=== PATIENT | male | born 1970 | race Caucasian/White ===

== ENCOUNTER → 2020-05-28 10:59 | Outpatient (CLI) | payer OTHER, SELFPAY ==
--- NOTE | ~2020-05-28 | MR_ITS ---
EXAMINATION: MR shoulder LT wo con DATE: 05/28/2020 11:41 INDICATION: Acute left shoulder pain. TECHNIQUE: Magnetic resonance imaging (MRI) of the left shoulder was performed without intravenous co ntrast. Sequences included axial PD-weighted FS FSE, coronal oblique PD-weighted FS FSE and T2-weight ed FS FSE, and sagittal oblique T2-weighted FS FSE and T1-weighted FSE. COMPARISON: None. FINDINGS: Coracoacromial arch: The acromion undersurface is curved in morphology (type II). There is moderate acromioclavicular join t osteoarthritis. There is mild subacromial/subdeltoid bursitis. Rotator cuff: There is severe supraspinatus tendinopathy and mild infraspinatus tendinopathy. Teres minor tendon is abnormal. There is mild subscapularis tendinopathy. No tear. There is no asymmetric fatty atrophy of the rotator cuff muscle bellies. Biceps tendon and glenoid labrum: Biceps tendon is in bicipital groove. Intra-articular biceps tendon is normal. The glenoid labrum is normal. Fluid: There is no glenohumeral joint effusion. Bones/cartilage: The glenoid cartilage is normal. Humeral cartilage is normal. IMPRESSION: 1. Severe rotator cuff tendinopathy. No tear. 2. Moderate acromioclavicular joint osteoarthritis. 3. Mild subacromial/subdeltoid bursitis. Reviewed, dictated and finalized at location A. UNDERWRITER
== END ==
PROVIDERS: PCP Internal Medicine; Visit Provider Internal Medicine
DX: M19.012 Primary osteoarthritis, left shoulder (principal); M75.52 Bursitis of left shoulder
CPT/HCPCS: 73221

== ENCOUNTER 2022-02-15 02:18 | Observation (INO) | payer BC, SELFPAY ==
[2022-02-15] VITALS (20 sets, daily range): BP systolic 140–172; BP diastolic 86–98; PULSE 71–96; RESP 13–24; TEMP 36.4–36.7; O2SAT 94–99; BMI 34.4
--- NOTE | 2022-02-15 | EST_ITS ---
Patient Info Name: Godfrey Sanches Age: 51 years : 1970 Gender: Male Ht: 72 in Wt: 235 lbs BSA: 2.36 m2 HR: 78 bpm BP: 140 / 65 mmHg Heart Rhythm: Sinus Rhythm Exam Date: 02/15/2022 9:24 AM Exam Location: [facility] Patient Status: Outpatient Admit Date: 02/15/2022 Staff Ordering Physician: Ashley Aguilera DO Attending Provider: Ashley Aguilera DO Exercise Technologist: Radha Song CT Exercise Physician: Mark Frankel DO Exam Type: CA stress test treadmill w NM Study Info Indications I51.7 - Cardiomegaly R07.9 - Chest pain, unspecified A nuclear stress test was performed. Summary 1. 1. Negative Ruben exercise stress test for ischemic ST changes by ECG criteria. 2. 2. Good functional capacity, achieving 10 METs of workload. 3. 3. Baseline hypertension. 4. 4. Appropriate HR response to exercise. 5. 5. Appropriate HR recovery at 1 minute post exercise. 6. 6. Nuclear scan to follow and will be reported separately. Please correlate with it. 7. 7. Patient informed of the above results. Protocol: [facility] Stress ECG Details Stage: REST Duration (min): 1 min : 9 sec Speed (mph): 0.0 Grade (%): 0 HR (bpm): 78 SBP (mmHg): 140 DBP (mmHg): 65 METS: --- Stage: REST Duration (min): 32 min : 31 sec Speed (mph): 0.0 Grade (%): 0 HR (bpm): 78 SBP (mmHg): 140 DBP (mmHg): 65 METS: --- Stage: STAGE 1 Duration (min): 1 min : 0 sec Speed (mph): 1.7 Grade (%): 10 HR (bpm): 99 SBP (mmHg): 140 DBP (mmHg): 65 METS: --- Stage: STAGE 1 Duration (min): 2 min : 0 sec Speed (mph): 1.7 Grade (%): 10 HR (bpm): 106 SBP (mmHg): 140 DBP (mmHg): 65 METS: --- Stage: STAGE 1 Duration (min): 3 min : 0 sec Speed (mph): 1.7 Grade (%): 10 HR (bpm): 107 SBP (mmHg): 148 DBP (mmHg): 84 METS: --- Stage: STAGE 2 Duration (min): 1 min : 0 sec Speed (mph): 2.5 Grade (%): 12 HR (bpm): 113 SBP (mmHg): 148 DBP (mmHg): 84 METS: --- Stage: STAGE 2 Duration (min): 2 min : 0 sec Speed (mph): 2.5 Grade (%): 12 HR (bpm): 119 SBP (mmHg): 179 DBP (mmHg): 79 METS: --- Stage: STAGE 2 Duration (min): 3 min : 0 sec Speed (mph): 2.5 Grade (%): 12 HR (bpm): 119 SBP (mmHg): 179 DBP (mmHg): 79 METS: --- Stage: STAGE 3 Duration (min): 1 min : 0 sec Speed (mph): 3.4 Grade (%): 14 HR (bpm): 136 SBP (mmHg): 179 DBP (mmHg): 79 METS: --- Stage: STAGE 3 Duration (min): 2 min : 0 sec Speed (mph): 3.4 Grade (%): 14 HR (bpm): 142 SBP (mmHg): 175 DBP (mmHg): 92 METS: --- Stage: STAGE 3 Duration (min): 2 min : 55 sec Speed (mph): 3.4 Grade (%): 14 HR (bpm): 145 SBP (mmHg): 200 DBP (mmHg): 88 METS: --- Stage: RECOVERY Duration (min): 0 min : 4 sec Speed (mph): 1.5 Grade (%): 0
--- NOTE | ~2022-02-15 | CT_ITS ---
EXAMINATION: CTA chest PE protocol DATE: 02/15/2022 03:12 INDICATION: Chest pain. Shortness of breath. TECHNIQUE: Computed tomography angiography (CTA) of the chest was performed with 100 mL Omnipaque-350 intravenous contrast timed to evaluate the pulmonary arteries. Coronal maximum intensity projection 3D-reconstructions were created by the technologist. Automated exposure control and iterative reconst ruction technique were employed. The dose-length product was 626.90 mGy-cm. COMPARISON: Thoracic spine CT 08/03/2016 FINDINGS: The lungs demonstrate mild atelectasis. The lung volumes are small. A calcified right lung nodule is consistent with old granulomatous disease. No pleural effusion. The heart size is normal. N o pericardial effusion. There is no pulmonary embolus. There is a 15 mm cyst in the liver. There is m ild thoracic spondylosis. There is mild chronic anterior wedging of T11 vertebral body. IMPRESSION: 1. No pulmonary embolus. Reviewed, dictated and finalized at location A. IMPRESSION: 1. No pulmonary embolus.
--- NOTE | ~2022-02-15 | NM_ITS ---
EXAMINATION: NM stress w perf spect multi DATE: 02/15/2022 10:49 INDICATION: Chest pain. TECHNIQUE: Rest images were obtained following intravenous administration of 10.8 mCi Tc99m tetrofosm in (Myoview). The patient performed an exercise activity. At peak exercise, 33.5 mCi Tc99m tetrofosmi n (Myoview) was administered intravenously, and stress images were obtained. Data was reconstructed i nto short axis and horizontal and vertical long axis SPECT images. Gated SPECT images were also obtai josefa. COMPARISON: Chest CT 02/15/2022 FINDINGS: There is no definite reversible or fixed perfusion abnormality to suggest ischemia or infar ction. There is no segmental wall motion abnormality. Left ventricular ejection fraction measures > 70%. IMPRESSION: 1. No definite ischemia or infarct. 2. Normal left ventricular ejection fraction measuring >70%. Reviewed, dictated and finalized at location A.
--- NOTE | 2022-02-15 02:22 | ECG_ITS ---
Measurements Intervals [place] Rate: 90 P: 28 [place]: 144 QRS: -11 QRSD: 93 T: 12 QT: 374 QTc: 459 Interpretive Statements SINUS RHYTHM DELAYED PRECORDIAL R/S TRANSITION BASELINE ARTIFACT- I, II, III, AVF, V4-V6 BORDERLINE ECG NO PREVIOUS ECG AVAILABLE FOR COMPARISON Electronically Signed On 02-15-2022 6:29:52 CDT by Mark Frankel D.O.
[2022-02-15 02:29] LABS: Basophils Absolute Auto 0.1 K/mm3 (0.0-0.1); Basophils Percent Auto 0.6 % (0.2-1.2); Eosinophils Absolute Auto 0.5 K/mm3 (0-0.3); Eosinophils Percent Auto 4.4 % (0-4.4); Hematocrit 50.9 % (42.0-52.0); Hemoglobin 16.8 g/dL (14.0-18.0); Immature Granulocyte Absolute 0.08 K/mm3 (0.00-0.031); Immature Granulocyte Percent A 0.7 % (0-0.5); Lymphocytes Absolute Auto 4.69 K/mm3 (0.9-3.2); Lymphocytes Percent Auto 39.1 % (18.3-44.2); Mean Corpuscular Hemoglobin 28.5 pg (26-34); Mean Corpuscular Volume 86.3 fl (80-100); Mean Platelet Volume 10.2 fl (7.4-10.4); Monocytes Absolute Auto 1.1 K/mm3 (0.1-0.6); Monocytes Percent Auto 8.8 % (2.6-8.5); Neutrophils Absolute Auto 5.6 K/mm3 (1.3-6.7); Neutrophils Percent Auto 46.4 % (45.5-73.1); Platelet Count Result 258 k/mm3 (150-375); Red Cell Distribution Width 14.4 % (11.5-14.5)
[2022-02-15 02:39] LABS: Prothrombin Time 12.6 Seconds (11.1-14.7)
[2022-02-15 02:40] LABS: Partial Thromboplastin Time 30.8 SECONDS (22.3-36.8)
[2022-02-15] MEDS: ASPIRIN 81 MG CHEWABLE TABLET 324 MG PO (02:40)
[2022-02-15 02:41] LABS: Alanine Aminotransferase 28 U/L (6-50); Albumin Level 4.2 g/dL (3.5-5.1); Alkaline Phosphatase 122 U/L (38-126); Anion Gap 7 mmol/L (8-16); Aspartate Amino Transferase 25 U/L (17-59); Bilirubin,Total 0.9 mg/dL (0.2-1.3); Blood Urea Nitrogen 18 mg/dL (9-20); Calcium 9.2 mg/dL (8.4-10.2); Carbon Dioxide 29 mmol/L (22-30); Chloride 103 mmol/L (98-107); Estimated CRCL calculation 95 ml/min; Estimated Glomerular Filt Rate > 60; Glucose 102 mg/dL (65-110); Lipase 63 U/L (23-300); Potassium 3.5 mmol/L (3.4-5.0); Sodium 139 mmol/L (137-145)
[2022-02-15] MEDS: NITROGLYCERIN SL 0.4 MG TABLET SUBLINGUAL (02:41)
[2022-02-15 02:53] LABS: Troponin I 0.033 ng/mL (0.000-0.034)
--- NOTE | 2022-02-15 04:12 | ED.CHESTPAIN ---
HPI - Chest Pain General Chief Complaint: Chest Pain Stated Complaint: chest pain Time Seen by Provider: 02/15/22 02:22 History of Present Illness HPI narrative: Patient is a 51-year-old male who presents ER with upper chest pain. Reports began yesterday during the day and been persistent ache. He went to bed 1 AM and then woke up at 130. He has a sharp pain in his upper chest that is worse with taking a breath. Reports he feels like he can only get a quarter of his breath at a time. No radiation. No alleviating factors. No dyspepsia. No upset stomach. No nausea or vomiting. Has not had similar symptoms previously. Related Data Allergies Allergy/AdvReac Type Severity Reaction Status Date / Time No Known Allergies Allergy Mild Verified 02/16/22 09:13 Review of Systems Review of Systems: All systems reviewed & are unremarkable except as noted in HPI and below Constitutional: Constitutional: Denies chills, Denies fatigue and Denies fever(s) ENT: Denies nasal congestion and Denies sore throat Cardiovascular: Cardiovascular: Reports chest pain, Denies rapid heart rate and Denies radiating jaw, neck or arm pain Respiratory: Respiratory: Denies cough and Reports dyspnea Gastrointestinal: Gastrointestinal: Denies abdominal pain, Denies nausea and Denies vomiting PMFSH Past Medical History Medical History (Updated 02/18/22 @ 03:52 by Yousuf Donnelly MD) GERD (gastroesophageal reflux disease) Gastric ulcer at age 25 Non-cardiac chest pain Surgical History Surgical History No pertinent past surgical history Family History Family History Other Heart attack Social History Social History Smoking status: Never smoker Substance use type: does not use Other substance usage details: social drinker Spiritual care concerns: No Exam Narrative: GENERAL: Uncomfortable-appearing, well-nourished, and in no acute distress. HEAD: Normocephalic, atraumatic. ENT: Mucous membranes moist. CHEST: Clear to auscultation. No respiratory distress. HEART: Regular rate and rhythm. Normal peripheral pulses. ABDOMEN: Soft, nontender, nondistended. EXTREMITIES: Normal range of motion. No edema. SKIN: Warm, dry, no rash. NEURO: Alert and oriented x3. PSYCH: Normal mood and affect. Course Course Emergency Course: Chest pain went from 810-310 after nitroglycerin. Blood pressure went from 170 systolic to 120 systolic. We will will rule out PE with CTA given pain with deep breath. Reevaluation(s) Reevaluation #1: Patient without pain. When he did go to CT he reports a little discomfort with laying down flat now has been belching. CT shows cardiomegaly which is new for him and curious given the fact that he has no comorbid conditions. Given the chest pain that improved with nitroglycerin and cardiomegaly will discuss with hospitalist service about observation and cardiac rule out. Date: 02/15/22 Time: 05:40 Vital Signs Vital signs: Vital Signs Pulse Rate 89 02/15/22 02:24 Respiratory Rate 24 H 02/15/22 02:24 Blood Pressure 172/98 H 02/15/22 02:24 Pulse Oximetry 96 02/15/22 02:24 Oxygen Delivery Room Air 02/15/22 02:24 Temperature 97.2 F L 02/16/22 09:14 Pulse Rate 75 02/16/22 10:25 Respiratory Rate 20 02/16/22 10:25 Blood Pressure 133/96 H 02/16/22 10:25 Pulse Oximetry 95 02/16/22 10:25 Oxygen Delivery Room Air 02/16/22 10:25 MDM - Chest Pain Lab Data Result diagrams: 02/15/22 02:25 02/15/22 02:25 Labs: Lab Results 02/15/22 02/15/22 02/15/22 Range/Units 02:25 02:25 02:25 WBC 12.0 H (4.5-10.0) K/mm3 RBC 5.90 (4.6-6.20) M/mm3 Hgb 16.8 (14.0-18.0) g/dL Hct 50.9 (42.0-52.0) % MCV 86.3 (80-100) fl MCH 28.5 (26-34) pg MCHC 33.0 (32-36)
--- NOTE | 2022-02-15 06:00 | ECHO_ITS ---
Patient Info Name: Godfrey Sanches Age: 51 years : 1970 Gender: Male Ht: 72 in Wt: 230 lbs BSA: 2.33 m2 HR: 96 bpm BP: 145 / 87 mmHg Heart Rhythm: Sinus Rhythm Technical Quality: Fair Exam Date: 02/15/2022 11:59 AM Exam Location: [facility] Patient Status: Inpatient Admit Date: 02/15/2022 Staff Ordering Physician: Yousuf Donnelly MD Cross Cut Saw Operator: Manda Walker RDCS Attending Provider: Ashley Aguilera DO Referring Physician: Andrzej ROSARIO; Exam Type: CA echo doppler color flow Study Info Indications - cardiomegaly Complete two-dimensional, color flow and Doppler transthoracic echocardiogram is performed. Summary 1. Complete two-dimensional, color flow and Doppler transthoracic echocardiogram is performed. 2. Left ventricular chamber dimension is normal. 3. Left ventricular systolic function is normal, estimated at 60-65%. 4. The left ventricular diastolic function is grade I diastolic dysfunction. 5. E/e' 8 is minimally elevated. 6. Left atrial chamber dimension is mildly enlarged. 7. No pulmonary hypertension, estimated pulmonary arterial systolic pressure is 16 mmHg. Left Ventricle E/e' 8 is minimally elevated. Left ventricular chamber dimension is normal. Left ventricular systolic function is normal, estimated at 60-65%. The left ventricular diastolic function is grade I diastolic dysfunction. Right Ventricle Right ventricular systolic function is normal and with normal TAPSE 1.9 cm. Right ventricular chamber dimension is normal. Left Atria Left atrial chamber dimension is mildly enlarged. Right Atria Right atrial chamber dimension is normal. Aortic Valve The aortic valve is trileaflet. There is no aortic valve stenosis. There is no aortic valve regurgitation. Pulmonic Valve There is no pulmonic regurgitation. Mitral Valve There is no mitral valve stenosis. There is no mitral valve regurgitation. Tricuspid Valve There is no tricuspid valve regurgitation. No pulmonary hypertension, estimated pulmonary arterial systolic pressure is 16 mmHg. Pericardium/Pleural There is no pericardial effusion. Inferior Vena Cava Normal inferior vena cava with >50% collapse upon inspiration consistent with normal right atrial pressure, 5 mmHg. Aorta The aortic root size at the sinus of Valsalva is normal. Left Ventricular Outflow Tract Name Value Normal LVOT 2D LVOT Diameter 2.2 cm LVOT Doppler LVOT Peak Gradient 5 mmHg LVOT Mean Gradient 2 mmHg LVOT VTI 21 cm LVOT VTI/AV VTI Ratio 0.8 LVOT Stroke Volume 82 ml LVOT CO 5.8 l/min LVOT CI 2.5 l/min/m2 Pulmonic Valve Name Value Normal RVOT Doppler
[2022-02-15 06:10] LABS: Troponin I 0.033 ng/mL (0.000-0.034)
--- NOTE | 2022-02-15 07:50 | ADMGEN ---
This patient, Godfrey Sanches, was admitted to IMU Room 214-01 at 0735 on 02/15/2022. Patient/family oriented to hospital policies and general routines including ID bracelet, bed and alarms, visiting hours, pain management, procedures, bathroom and other care routines, personal items, smoking policy, room service/diet, and visiting hours. Information on how to activate the Rapid Response Team has been discussed. Patient/Family are encouraged to report perceived risks to care and to ask questions if they do not understand what they are told or what they should do.
--- NOTE | 2022-02-15 08:46 | PM.IMHP ---
H&P: HPI History of Present Illness Date/Time: 02/15/22 08:46 Chief Complaint: chest pain Narrative: 51 year old man with PMH significant for GERD and a ulcer p/w chest pain. It was worse when taking a deep breath. He denied SOB, NVD, F/C. PMFSH Past Medical History Medical History (Updated 02/15/22 @ 04:16 by Yousuf Donnelly MD) GERD (gastroesophageal reflux disease) Gastric ulcer at age 25 Surgical History Surgical History (Updated 02/15/22 @ 04:15 by Yousuf Donnelly MD) No pertinent past surgical history Family History Family History (Updated 02/15/22 @ 08:08 by Margaux Singh RN) Other Heart attack Social History Social History (Updated 02/15/22 @ 04:16 by Yousuf Donnelly MD) Smoking status: Never smoker Substance use type: does not use Other substance usage details: social drinker Spiritual care concerns: No Meds Home Medications and Allergies Home Medications Medication Instructions Recorded Confirmed Type No Home Medications 02/15/22 02/15/22 History Allergies Allergy/AdvReac Type Severity Reaction Status Date / Time No Known Allergies Allergy Mild Verified 08/03/16 16:09 Vital Signs Vital Signs - 24 hr 02/15/22 02:24 02/15/22 02:43 02/15/22 02:26 Temperature Pulse Rate 89 88 89 Respiratory Rate 24 H 23 H Blood Pressure 172/98 H Pulse Oximetry 96 Oxygen Delivery Room Air 02/15/22 02:30 02/15/22 02:43 02/15/22 02:45 Temperature Pulse Rate 91 86 90 Respiratory Rate 16 21 H 16 Blood Pressure 140/86 Pulse Oximetry 95 94 Oxygen Delivery 02/15/22 03:10 02/15/22 03:15 02/15/22 03:46 Temperature Pulse Rate 81 79 77 Respiratory Rate 23 H 22 H 20 Blood Pressure Pulse Oximetry 96 95 94 Oxygen Delivery 02/15/22 04:00 02/15/22 04:15 02/15/22 04:30 Temperature Pulse Rate 75 71 79 Respiratory Rate 20 17 13 Blood Pressure Pulse Oximetry 96 95 Oxygen Delivery 02/15/22 07:23 02/15/22 07:51 Temperature 97.5 F L Pulse Rate 96 73 Respiratory Rate 18 22 H Blood Pressure 145/87 H 147/92 H Pulse Oximetry 99 98 Oxygen Delivery H&P: Results Labs Labs: Short CBC 02/15/22 Range/Units 02:25 WBC 12.0 H (4.5-10.0) K/mm3 Hgb 16.8 (14.0-18.0) g/dL Hct 50.9 (42.0-52.0) % Plt Count 258 (150-375) k/mm3 BMP 02/15/22 02:25 Sodium 139 Potassium 3.5 Chloride 103 Carbon Dioxide 29 BUN 18 Creatinine 1.00 Glucose 102 Calcium 9.2 Cardiac Enzymes 02/15/22 02/15/22 Range/Units 02:25 05:40 Troponin I 0.033 0.033 (0.000-0.034) ng/mL Liver Function 02/15/22 Range/Units 02:25 Total Bilirubin 0.9 (0.2-1.3) mg/dL AST 25 (17-59) U/L ALT 28 (6-50) U/L Alkaline Phosphatase 122 (38-126) U/L Albumin 4.2 (3.5-5.1) g/dL
[2022-02-15 09:06] LABS: Troponin I 0.024 ng/mL (0.000-0.034)
[2022-02-15] MEDS: HYDROcodone/acetaminophen (*CRX) 5-325 MG TABLET 1 TAB PO (12:35)
--- NOTE | 2022-02-15 15:02 | PM.SD2 ---
Same Day Admit/Disch: HPI History of Present Illness Chief complaint: Chest Pain/Cardiomegaly Narrative: Godfrey Sanches is a 51 year old male [facility] Past Medical History Medical History (Updated 02/15/22 @ 04:16 by Yousuf Donnelly MD) GERD (gastroesophageal reflux disease) Gastric ulcer at age 25 Surgical History Surgical History (Updated 02/15/22 @ 04:15 by Yousuf Donnelly MD) No pertinent past surgical history Family History Family History (Updated 02/15/22 @ 08:08 by Margaux Singh RN) Other Heart attack Social History Social History (Updated 02/15/22 @ 04:16 by Yousuf Donnelly MD) Smoking status: Never smoker Substance use type: does not use Other substance usage details: social drinker Spiritual care concerns: No Same Day Admit/Disch: Med Pre-admit Medications Home Medications Medication Instructions Recorded Confirmed Type No Home Medications 02/15/22 02/15/22 History DS: Data Data Completed and Pending Labs on day of discharge: Labs from last 24 hours 02/15/22 02/15/22 02/15/22 08:26 05:40 02:25 WBC RBC Hgb Hct MCV MCH MCHC RDW Plt Count MPV Immature Gran % (Auto) Neut % (Auto) Lymph % (Auto) Hayes % (Auto) Eos % (Auto) Baso % (Auto) Lymph # (Auto) Hayes # (Auto) Eos # (Auto) Baso # (Auto) Abs Immat Gran (auto) Absolute Neuts (auto) Absolute Nucleated RBC Nucleated RBC % PT INR APTT Sodium 139 Potassium 3.5 Chloride 103 Carbon Dioxide 29 Anion Gap 7 L BUN 18 Creatinine 1.00 Estim Creat Clear Calc 95 Estimated GFR > 60 Glucose 102 Calcium 9.2 Total Bilirubin 0.9 AST 25 ALT 28 Alkaline Phosphatase 122 Troponin I 0.024 D 0.033 0.033 Total Protein 7.0 Albumin 4.2 Lipase 63 02/15/22 02/15/22 02:25 02:25 WBC 12.0 H RBC 5.90 Hgb 16.8 Hct 50.9 MCV 86.3 MCH 28.5 MCHC 33.0 RDW 14.4 Plt Count 258 MPV 10.2 Immature Gran % (Auto) 0.7 H Neut % (Auto) 46.4 Lymph % (Auto) 39.1 Hayes % (Auto) 8.8 H Eos % (Auto) 4.4 Baso % (Auto) 0.6 Lymph # (Auto) 4.69 H Hayes # (Auto) 1.1 H Eos # (Auto) 0.5 H Baso # (Auto) 0.1 Abs Immat Gran (auto) 0.08 H Absolute Neuts (auto) 5.6 Absolute Nucleated RBC 0.0 Nucleated RBC % 0.0 PT 12.6 INR 1.0 APTT 30.8 Sodium Potassium Chloride Carbon Dioxide Anion Gap BUN Creatinine Estim Creat Clear Calc Estimated GFR Glucose Calcium Total Bilirubin AST ALT Alkaline Phosphatase Troponin I Total Protein Albumin Lipase DS: Summary Time Spent with Patient Time attestation: Total time spent providing and/or coordinating discharge services: Discharge Plan Discharge Attending physician on discharge: Sangtia Quezada Discharging Clinician: Sangita Quezada Patient Disposition: Home, Self-Care Activity: as tolerated Diet: as tolerated Patient Instructions: Antibiotic Form Stand Alone Forms: General Discharge Information Follow-up/Referrals: Noah,Ramsey Redman MD [Primary Care Provider] - Discharge Medications: No Action No Home Medications Date of admission: 02/15/22 06:44 Primary Care Provider: NoahRamsey Admitting Provider: Ashley Aguilera Attending physician on admission: Ashley Aguilera Condition: Stable
--- NOTE | 2022-02-15 15:30 | PM.IMHP ---
H&P: [facility] History of Present Illness Date/Time: 02/15/22 15:30 Chief Complaint: Chest pain with shortness of breath Narrative: 31-year-old male with no past medical history other than ulcer when he was age 25. He states he took a PPI for about a month after this and was supposed to get a repeat EGD, he never followed up. He states he often has severe heartburn, especially after drinking alcoholic beverages, but he just takes Tums or [id number] antacids. He states this episode felt different to him because he did not have a sour taste in his mouth. Other than that, however, he states it felt quite similarly. He denies any fevers or chills, no sick contacts. No headaches or vision changes. He states that the pain was intermittent, worse when he was lying down. He states it feels like there was something ?sloshing around? in his upper chest area. He states food did not seem to make it better or worse. Drinking lemonade or alcohol made it much worse. He denied any dyspnea with exertion. No conversational dyspnea. When he presented to the ER, he did have some shortness of breath, but he states this was secondary to the pain that occurred when he tried to take deep breaths or lay down. His shortness of breath is now resolved. He was seen by our [employer] pl[employer] an ER doctor and an echo as well as a stress test were both ordered. The results are available to me now and they are both essentially benign. Therefore, GI will be consulted and patient will likely need an EGD. Review of Systems Review of Systems: 12 point review of systems was assessed and was negative except as noted in the HPI [facility] Past Medical History Medical History (Updated 02/15/22 @ 15:33 by Sangita Quezada DO) GERD (gastroesophageal reflux disease) Gastric ulcer at age 25 Surgical History Surgical History No pertinent past surgical history Family History Family History Other Heart attack Social History Social History Smoking status: Never smoker Substance use type: does not use Other substance usage details: social drinker Spiritual care concerns: No Meds Home Medications and Allergies Home Medications Medication Instructions Recorded Confirmed Type No Home Medications 02/15/22 02/15/22 History Allergies Allergy/AdvReac Type Severity Reaction Status Date / Time No Known Allergies Allergy Mild Verified 08/03/16 16:09 Vital Signs Vital Signs - 24 hr 02/15/22 02:24 02/15/22 02:43 02/15/22 02:26 Temperature Pulse Rate 89 88 89 Respiratory Rate 24 H 23 H Blood Pressure 172/98 H Pulse Oximetry 96 Oxygen Delivery Room Air 02/15/22 02:30 02/15/22 02:43 02/15/22 02:45 Temperature Pulse Rate 91 86 90 Respiratory Rate 16 21 H 16 Blood Pressure 140/86 Pulse Oximetry 95 94 Oxygen Delivery 02/15/22 03:10 02/15/22 03:15 02/15/22 03:46 Temperature Pulse Rate 81 79 77 Respiratory Rate 23 H 22 H 20 Blood Pressure Pulse Oximetry 96 95 94 Oxygen Delivery 02/15/22 04:00 02/15/22 04:15 02/15/22 04:30 Temperature Pulse Rate 75 71 79 Respiratory Rate 20 17 13 Blood Pressure Pulse Oximetry 96 95 Oxygen Delivery 02/15/22 07:23 02/15/22 07:51 02/15/22 08:00 Temperature 97.5 F L Pulse Rate 96 73 75 Respiratory Rate 18 22 H Blood Pressure 145/87 H 147/92 H Pulse Oximetry 99 98 Oxygen Delivery 02/15/22 10:00 02/15/22 08:00 02/15/22 12:00 Temperature Pulse Rate 77 Respiratory Rate Blood Pressure Pulse Oximetry Oxygen Delivery Room Air Room Air 02/15/22 12:26 02/15/22 12:00 02/15/22 14:00 Temperature 97.8 F Pulse Rate 77 73 82 Respiratory Rate 22 H Blood Pressure 153/91 H Pulse Oximetry 97 Oxygen Delivery Exam Narrative: General: No acute distres
[2022-02-15] MEDS: PANTOPRAZOLE SODIUM IV 40 MG VIAL IV PUSH ×2 (16:55→20:27)
--- NOTE | 2022-02-15 17:03 | PC.NURSE ---
This patient, Godfrey Sanches, was transferred to [facility] on 02/15/22 at 1701. Personal belongings sent with patient. Report given to Gisela SAMPSON. Appropriate documentation sent with patient.
[2022-02-16 07:05] VITALS: BP 102/62; PULSE 70; RESP 19; TEMP 35.9; O2SAT 94
[2022-02-16] MEDS: PANTOPRAZOLE SODIUM IV 40 MG VIAL IV PUSH (07:59)
[2022-02-16 09:00] VITALS: O2SAT 98
[2022-02-16] MEDS: LACTATED RINGERS 1,000 ML 150 ML IV CONT ×2 (09:13→10:17)
[2022-02-16 09:14] VITALS: BP 146/80; PULSE 74; RESP 20; TEMP 36.2; O2SAT 98
--- NOTE | 2022-02-16 09:31 | P.PNAN_ITS ---
Anes - Initial Pre Proc Eval Procedure: Operation Date: 02/16/22 15:30 Proposed Procedures p Esophagogastroduodenoscopy - Rony Barros MD Date/Time: 02/16/22 09:31 Surgeon: Ashley Aguilera DO Pre Op Diagnosis: Chest Pain/Cardiomegaly Patient Data Age: 51 Gender: M Height: 1.83 m Weight: 116.5 kg Last Vital Signs Temp 97.2 F L 02/16/22 09:14 Pulse 74 02/16/22 09:14 Resp 20 02/16/22 09:14 BP 146/80 H 02/16/22 09:14 Pulse Ox 98 02/16/22 09:14 O2 Del Method Room Air 02/16/22 09:14 Allergies Allergy/AdvReac Type Severity Reaction Status Date / Time No Known Allergies Allergy Mild Verified 02/16/22 09:13 Home Medications Medication Instructions Recorded Confirmed Type No Home Medications 02/15/22 02/15/22 History Patient hx anesthesia problems: none Family hx anesthesia problems: none Results Review: All pre-operative results and documents have been reviewed as part of the pre-operative evaluation. [facility] Past Medical History Medical History (Updated 02/15/22 @ 15:33 by Sangita Quezada DO) GERD (gastroesophageal reflux disease) Gastric ulcer at age 25 Surgical History Surgical History No pertinent past surgical history Family History Family History Other Heart attack Social History Social History Smoking status: Never smoker Substance use type: does not use Other substance usage details: social drinker Spiritual care concerns: No Anes - Eval Final PreProcedure Day of Procedure 02/16/22 09:31 Patient weight: obese Heart: regular rate and rhythm Lungs: clear to auscultation Airway: Mallampati scale class II Neurological: alert and oriented Last oral intake: >/= 8 hours ASA classification: II Emergent: no Anesthetic plan: proceed Anesthesia type and monitoring: general GIVS and standard monitoring Results Review: All pre-operative results and documents have been reviewed as part of the pre- operative evaluation. Informed Consent: The patient's anesthetic plan and its attendant risks and benefits were discussed with the patient/family/POA. Questions were solicited and answers provided to the satisfaction of the patient/family/POA.
--- NOTE | 2022-02-16 09:47 | WPDGICN ---
Assessment and Plan Assessment and plan (1) GERD (gastroesophageal reflux disease): Code(s): K21.9 - Gastro-esophageal reflux disease without esophagitis Status: Acute Assessment and Plan: will proceed with egd, consider biopsies symptom improved after using ppi cardiac work up thus far negative (2) Non-cardiac chest pain: Code(s): R07.89 - Other chest pain Status: Acute GI Consult Note Consult date/time: 02/16/22 09:47 Reason for consult: non-cardiac chest pain, gerd HPI: Godfrey Sanches is a 51 year old male with no major medical problem other than gerd which he has been controlling with diet who came to the hospital with new onset of chest discomfort at bedtime, also discomfort with breathing. He says that last weekend was drinking more than usual. He was diagnosed with ulcer in his 20's for which he took nexium for few weeks. Cardiac work up negative, symptom improved after he sit upright position and given protonix. Review of Systems Review of Systems: All systems reviewed & are unremarkable except as noted in HPI and below Constitutional: Constitutional: Denies chills, Denies fatigue and Denies fever(s) ENT: Denies nasal congestion and Denies sore throat Cardiovascular: Cardiovascular: Reports chest pain, Denies rapid heart rate and Denies radiating jaw, neck or arm pain Respiratory: Respiratory: Denies cough and Reports dyspnea Gastrointestinal: Gastrointestinal: Denies abdominal pain, Denies nausea and Denies vomiting PMFSH Past Medical History Medical History (Updated 02/16/22 @ 09:49 by Rony Barros MD) GERD (gastroesophageal reflux disease) Gastric ulcer at age 25 Non-cardiac chest pain Surgical History Surgical History No pertinent past surgical history Family History Family History Other Heart attack Social History Social History Smoking status: Never smoker Substance use type: does not use Other substance usage details: social drinker Spiritual care concerns: No Meds Home Medications and Allergies Home Medications Medication Instructions Recorded Confirmed Type No Home Medications 02/15/22 02/15/22 History Allergies Allergy/AdvReac Type Severity Reaction Status Date / Time No Known Allergies Allergy Mild Verified 02/16/22 09:13 Vital Signs Vital Signs - 24 hr 02/15/22 10:00 02/15/22 12:00 02/15/22 12:26 Temperature 97.8 F Pulse Rate 77 77 Respiratory Rate 22 H Blood Pressure 153/91 H Pulse Oximetry 97 Oxygen Delivery Room Air 02/15/22 12:00 02/15/22 14:00 02/15/22 16:49 Temperature 98.0 F Pulse Rate 73 82 81 Respiratory Rate 20 Blood Pressure 152/92 H Pulse Oximetry 97 Oxygen Delivery 02/15/22 20:15 02/16/22 07:05 02/16/22 09:00 Temperature 96.7 F L Pulse Rate 81 70 Respiratory Rate 20 19 Blood Pressure 102/62 Pulse Oximetry 97 94 98 Oxygen Delivery Room Air Room Air 02/16/22 09:14 Temperature 97.2 F L Pulse Rate 74 Respiratory Rate 20 Blood Pressure 146/80 H Pulse Oximetry 98 Oxygen Delivery Room Air Exam Const: General: comfortable and no acute distress HENMT: General nose exam: Normal nares present Eyes: General: appearance normal, both eyes and all related structures Neck: Neck: no JVD Resp: Auscultation: clear to auscultation bilaterally Cardio: Rate: regular rate Rhythm: regular rhythm GI: Inspection: non-distended GI Palp: Yes Soft to palpation and No Tenderness to palpation present (GI) Auscultation: normal bowel sounds Skin: General skin exam: normal color Neuro: General: gait normal Speech: normal speech Extrem: General: normal to inspection Psych: Mental Status: mental status grossly normal Results Labs CBC & Chem 7: 02/15/22 02:25
[2022-02-16 10:05] VITALS: BP 128/79; PULSE 75; RESP 18; O2SAT 97
[2022-02-16 10:15] VITALS: BP 121/88; PULSE 79; RESP 18; O2SAT 95
[2022-02-16 10:25] VITALS: BP 133/96; PULSE 75; RESP 20; O2SAT 95
--- NOTE | 2022-02-16 16:44 | PM.DS ---
DS: Admitting Diagnosis Discharge Date 02/16/22 Admitting Diagnosis (1) GERD (gastroesophageal reflux disease): DS: Discharge Diagnosis Discharge Diagnosis Plan Gastritis GERD (gastroesophageal reflux disease): Non-cardiac chest pain: DS: Summary Hospital Course Reason for hospitalization: Chief Complaint: Chest pain with shortness of breath Narrative: 50-year-old male with no past medical history other than ulcer when he was age 25.? He states he took a PPI for about a month after this and was supposed to get a repeat EGD, he never followed up.? He states he often has severe heartburn, especially after drinking alcoholic beverages, but he just takes Tums or [id number] antacids.? He states this episode felt different to him because he did not have a sour taste in his mouth.? Other than that, however, he states it felt quite similarly.? He denies any fevers or chills, no sick contacts.? No headaches or vision changes.? He states that the pain was intermittent, worse when he was lying down.? He states it feels like there was something ?sloshing around? in his upper chest area.? He states food did not seem to make it better or worse.? Drinking lemonade or alcohol made it much worse.? He denied any dyspnea with exertion.? No conversational dyspnea.? When he presented to the ER, he did have some shortness of breath, but he states this was secondary to the pain that occurred when he tried to take deep breaths or lay down.? His shortness of breath is now resolved.? He was seen by our toy painter an ER doctor and an echo as well as a stress test were both ordered.? The results are available to me now and they are both essentially benign.? Therefore, GI will be consulted and patient will likely need an EGD. Hospital Course: 51 yo M w CP underwent stress testing and ACS ruled out. He then had EGD and was found to have esophagitis/ gastritis. Pt is discharged home in stable condition w/ indications to follow up w PCP and Dr Carlton CLARK in 2 weeks. He was also advised to take Pantoprazole as directed and avoid EtOH consumption and other irritating foods/beverages Status at Discharge Functional status at discharge: independent ambulation Overall status at discharge: patient is back to baseline Time Spent with Patient Time attestation: Total time spent providing and/or coordinating discharge services: Exam Narrative: General: No acute distress, alert and oriented per baseline HEENT: Atraumatic, normocephalic, mucous membranes moist CV: Regular rate and rhythm, S1, S2 Lungs: Clear to auscultation bilaterally, no rales or crackles noted, no wheezes, good air entry Abdomen: Soft, nontender, nondistended Extremities: Normal to inspection no edema Skin: No rashes noted, no lesions or wounds seen Psych: Euthymic, normal affect Neuro: Cranial nerves 2-12 grossly intact, normal gait DS: Data Data Completed and Pending Pending studies at discharge: Pending at discharge 02/16/22 10:04 Surgical [PTH] Routine Discharge Plan Discharge Attending physician on discharge: Mary Ann Baker Consulting providers: Rony Barros Discharging Clinician: Mary Ann Baker Anticipated Discharge Date/Time: 02/16/22 16:42 Patient Disposition: Home, Self-Care Activity: as tolerated Diet: as tolerated Patient Instructions: Antibiotic Form, Epigastric Pain (GEN), Upper Endoscopy (DC) Stand Alone Forms: General Discharge Information Follow-up/Referrals: Noah,Ramsey Redman MD [Primary Care Provider] - Discharge Medications: New pantoprazole 40 mg Tablet,Delayed Release (Dr/Ec) 40 mg PO Q12HR 60 Days Qty: 120 1RF Date of admission: 02/15/22 06:44 Primary Care Provider: NoahRamsey Admitting Provider: Ashley Aguilera Attending physician on admission: Ashley Aguilera Condition: Stable
== END 2022-02-16 17:02 | disposition home or self-care (01) ==
LOC: ANHED 03:07 → ANHIMU 15:02 → ANH3MEDSUR 02-16 07:56 → ANHIMU 02-17 09:55
PROVIDERS: Internal Medicine Gastroenterology; Admitting Provider Internal Medicine; Emergency Provider Emergency Medicine; PCP Internal Medicine; Visit Provider Hospitalist
PROC: 0DJ08ZZ Inspection of Upper Intestinal Tract, Via Natural or Artificial Opening Endoscopic (ICD-10-PCS; CPT 43235; principal; 2022-02-16 15:30)
DX: K21.00 Gastro-esophageal reflux disease with esophagitis, without bleeding (principal); K22.2 Esophageal obstruction; K29.50 Unspecified chronic gastritis without bleeding; J98.11 Atelectasis; I51.7 Cardiomegaly; E66.9 Obesity, unspecified; Z68.34 Body mass index [BMI] 34.0-34.9, adult; R12 Heartburn; I51.89 Other ill-defined heart diseases; Z87.11 Personal history of peptic ulcer disease; Z82.49 Family history of ischemic heart disease and other diseases of the circulatory system
CPT/HCPCS: 43249; 43239; 36415; 71275; 78452; 80053; 83690; 84484; 85025; 85610; 85730; 87081; 88305; 93005; 93017; 93306; 96374; 96376; 99285; A9270; A9502; C1726; C9113; G0378; J2704; J7120; Q9967